=== PATIENT | female | born 1975 | race African-American/Black ===

== ENCOUNTER 2017-05-25 05:39 | Inpatient (IN) | payer OTHER ==
[2017-05-25] VITALS (19 sets, daily range): BP systolic 132–179; BP diastolic 72–90
[~2017-05-25] VITALS: Ht 157.5 cm; Wt 114.8 kg
[~2017-05-25 05:39] MED LIST: ceFAZolin sod 2 GM in D5W 110 ML IVPB ONE
[2017-05-25] MEDS ORDERED: IBUPROFEN600 M1 PO (06:47)
[2017-05-25] MEDS ORDERED: BP MED PO (06:47)
[2017-05-25] MEDS ORDERED: Thrombin 5000 units TOPIC ONE (07:08)
[2017-05-25] MEDS ORDERED: Bupivacaine 0.5% Inj 30 ml vial INJ ONE (07:09)
[2017-05-25] MEDS ORDERED: Vancomycin 1gm inj IVPB ONE (07:10)
[2017-05-25] MEDS ORDERED: Bacitracin 50000 Units Vial ONE (07:10)
[2017-05-25] MEDS ORDERED: EPINEPHrine 1mg/1ml Amp ONE (07:10)
--- NOTE | 2017-05-25 07:18 | Pre-Procedure Note/Attestation ---
Pre-Procedure Note/Attestation Complete Prior to Procedure Procedure Narrative: ACDF C4-5 Indications for Procedure Pre-Operative Diagnosis: CERVICAL RADICULOPATHY AND HNP Attestation I attest that I discussed the nature of the procedure; its benefits; risks and complications; and alternatives (and the risks and benefits of such alternatives ), prior to the procedure, with the patient (or the patient's legal manufacturers representative). I attest that, if there was a reasonable possibility of needing a blood transfusion, the patient (or the patient's legal manufacturers representative) was given the [facility] standardized written summary, pursuant to the Andrzej Neil Blood Safety Act ([place] Health and Safety Code # 1645, as amended). I attest that I re-evaluated the patient just prior to the surgery and that there has been no change in the patient's H&P, except as documented below: ESTIVEN WALDROP May 25, 2017 07:18
[2017-05-25] MEDS ORDERED: Norco 5mg/325mg tab ORAL PRN (07:30)
[2017-05-25] MEDS ORDERED: HYDROcodone/Acetamin 7.5/325 tab ORAL PRN ×2 (07:30)
[2017-05-25] MEDS ORDERED: Naloxone 0.4mg/ml Inj IVP PRN (07:30)
[2017-05-25] MEDS ORDERED: Propofol 1,000mg/ 100ml btl IV ONE (07:30)
[2017-05-25] MEDS ORDERED: LR 1000ml 1,000 ML IVLG SCH (08:51)
--- NOTE | 2017-05-25 08:54 | Anethesia Preoperative Eval ---
Anesthesia Pre-op PMH/ROS General Date of Evaluation: May 25, 2017 Time of Evaluation: 07:20 Anesthesiologist: RAFAELA ASA Score: ASA 2 Mallampati Score Class I : Soft palate, uvula, fauces, pillars visible Class II: Soft palate, uvula, fauces visible Class III: Soft palate, base of uvula visible Class IV: Only hard plate visible Mallampati Classification: Class II Surgeon: BENJIE Diagnosis: CERVICAL RADICULOPATHY Surgical Procedure: C4-5 ACDF Anesthesia History: none Family History: no anesthesia problems Allergies: Coded Allergies: No Known Allergies (Unverified , 05/25/17) Medications: see eMAR Anesthesia Pre-op Phys. Exam Physician Exam Last Vital Signs Date Time Temp Pulse Resp B/P (MAP) Pulse Ox O2 Delivery O2 Flow Rate FiO2 05/25/17 06:29 98.5 83 18 132/76 98 Room Air 98.5 Constitutional: NAD Neurologic: CN 2-12 intact Cardiovascular: RRR Respiratory: CTA Gastrointestinal: S/NT/ND Airway Exam Mallampati Score: Class II MO: full ROM: full Teeth: intact Anesthesia Pre-op A/P Labs Urine Test Test 05/25/17 04:50 Urine HCG, Qualitative Negative (NEGATIVE) Risk Assessment & Plan Plan: GA Status Change Before Surgery: No Pre-Antibiotics Drug: ANCEF Given Within 1 Hr of Incision: Yes Time Given: 08:00 Dileep Mittal M.D. May 25, 2017 08:54
--- NOTE | 2017-05-25 08:56 | Immediate Post-Op Evaluation ---
Immediate Post-Op Evalulation Immediate Post-Op Evalulation Procedure: C4-5 ACDF Date of Evaluation: May 25, 2017 Time of Evaluation: 10:30 IV Fluids: 1000 Blood Products: 0 Estimated Blood Loss: 30 Urinary Output: 0 Blood Pressure Systolic: 136 Blood Pressure Diastolic: 72 Pulse Rate: 79 Respiratory Rate: 19 O2 Sat by Pulse Oximetry: 99 Temperature (Fahrenheit): 98 Pain Score (1-10): 0 Nausea: No Vomiting: No Patient Status: awake, reacts, patent, extubated, none Drug: ANCEF Given Within 1 Hr of Incision: Yes Time Given: 08:00 Dileep Mittal M.D. May 25, 2017 08:56
[2017-05-25] MEDS ORDERED: Midazolam 2mg/2ml Inj IVP PRN (09:00)
[2017-05-25] MEDS ORDERED: Acetaminophen (Non formulary) 100 ML IV ONE (09:00)
[2017-05-25] MEDS ORDERED: Ketorolac 30mg Inj IV PRN (09:00)
[2017-05-25] MEDS ORDERED: Hydromorphone 0.5mg/0.5ml inj IVP PRN (09:00)
[2017-05-25] MEDS ORDERED: DiphenhydrAMINE 50mg/ml Inj IVP PRN (09:00)
[2017-05-25] MEDS ORDERED: fentaNYL 100 mcg/2 mL IV PRN (09:00)
--- NOTE | 2017-05-25 10:15 | Brief Operative Note ---
Immediate Post Operative Note Operative Note Pre-op Diagnosis: CERVICAL RADICULOPATHY AND HNP Procedure: acdf C4-5 Post-op Diagnosis: same as pre-op Findings: consistent w/pre-op dx studies Surgeon: BENJIE Director Of Market Research: VALDEMAR Anesthesiologist: RAFAELA Anesthesia: general Specimen: yes Complications: none Condition: stable Fluids: 500 CC CRYSTALLOID Estimated Blood Loss: minimal - 10CC Drains: none Implant(s) used?: Yes ESTIVEN WALDROP May 25, 2017 10:14
--- NOTE | 2017-05-25 12:14 | Diagnostic Imaging Report ---
Indication: Neck Pain Findings: 5 fluoroscopic views of the cervical spine were obtained. Images showing localization followed by anterior fusion at C4-5 with a plate and screws prosthetic disc. IMPRESSION: Intraoperative imaging
[2017-05-25] MEDS: ceFAZolin sod 1 GM in D5W 55 ML IV SCH (15:15)
[2017-05-25] MEDS: D5 1/2NS 1,000 ML IV SCH (15:15)
--- NOTE | 2017-05-25 15:58 | History and Physical ---
History of Present Illness General Date patient seen: May 25, 2017 Present Illness HPI 41 year old female with hx of HTN, cardiac disease, CERVICAL RADICULOPATHY AND HNP underwent acdf C4-5 today. Post operatively, pt was extubated and transferred to surgical floor for post-op care. Allergies: Coded Allergies: No Known Allergies (Unverified , 05/25/17) Medication History Scheduled Ibuprofen (Ibuprofen), 500 MG PO NEEDED, (Reported) [Bp Med], Unknown Dose PO DAILY, (Reported) Patient History Healthcare decision maker ZUNILDA DINERO-SISTER, ALEX VALENTIN - DAUGHTER Resuscitation status Full Code Advanced Directive on File Past Medical/Surgical History Past Medical/Surgical History: (1) HTN (hypertension) (2) Obesity Review of Systems All Other Systems: negative except mentioned in HPI Physical Exam General Appearance: WD/WN, overweight Lines, tubes and drains: peripheral HEENT: normocephalic, atraumatic Neck: non-tender, normal alignment Respiratory/Chest: chest wall non-tender, normal breath sounds Breasts: no masses Cardiovascular/Chest: normal peripheral pulses, normal rate Abdomen: normal bowel sounds, non tender Genitourinary/Rectal: normal genital exam, normal rectal exam 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 grossly normal Lymphatic: anterior cervical Last 24 Hour Vital Signs Date Time Temp Pulse Resp B/P (MAP) Pulse Ox O2 Delivery O2 Flow Rate FiO2 05/25/17 13:24 96 Nasal Cannula 2.0 28 05/25/17 13:24 Nasal Cannula 2.0 28 05/25/17 13:21 97.5 05/25/17 13:20 97.5 05/25/17 13:00 98.5 91 19 143/79 94 98.5 05/25/17 12:35 95 14 139/84 96 Nasal Cannula 3.0 05/25/17 12:25 94 14 141/79 99 Nasal Cannula 3.0 05/25/17 12:10 92 17 142/77 99 Nasal Cannula 3.0 05/25/17 11:57 94 20 156/81 98 Nasal Cannula 3.0 05/25/17 11:47 97.5 05/25/17 11:47 95 20 159/82 98 Nasal Cannula 3.0 05/25/17 11:45 95 20 159/82 98 Nasal Cannula 3.0 05/25/17 11:30 98 20 137/72 98 Nasal Cannula 3.0 05/25/17 11:23 99 20 152/85 98 Nasal Cannula 3.0 05/25/17 11:02 97.5 91 20 159/86 98 Nasal Cannula 3.0 97.5 05/25/17 10:45 91 20 167/83 98 Simple Mask 10.0 05/25/17 10:30 95 20 167/80 98 Simple Mask 10.0 05/25/17 10:20 94 20 179/82 98 Simple Mask 10.0 05/25/17 10:15 94 20 163/86 98 Simple Mask 10.0 05/25/17 10:10 97.1 100 20 157/86 100 Simple Mask 10.0 97.1 05/25/17 08:55 208.4 79 19 99 05/25/17 06:29 98.5 83 18 132/76 98 Room Air 98.5 Intake and Output 05/24/17 05/25/17 19:00 07:00 # Voids 1 Laboratory Tests Test 05/25/17 04:50 Urine HCG, Qualitative Negative (NEGATIVE) Height (Feet): 5 Height (Inches): 2.00 Weight (Pounds): 253 Medications Current Medications Medications (Trade) Dose Ordered Sig/Sid Route PRN Reason Start Time Stop Time Status Last Admin Dose Admin Acetaminophen/ Hydrocodone Bitart ([place] 5/325) 1 tab Q3H PRN ORAL pain score 1-3 05/25/17 07:30 06/01/17 07:29 Acetaminophen/ Hydrocodone Bitart ([place] 7.5/325) 1 tab Q3H PRN ORAL pain score 4-6 05/25/17 07:30 06/01/17 07:29 Acetaminophen/ Hydrocodone Bitart ([place] 7.5/325) 2 tab Q3H PRN ORAL pain scale 7-10 05/25/17 07:30 06/01/17 07:29 Cefazolin Sodium 1 gm/Dextrose 55 ml @ 110 mls/hr Q8H IV 05/25/17 16:00 05/26/17 08:29 05/25/17 15:15 Dextrose/Sodium Chloride 1,000 ml @ 100 mls/hr Q10H IV 05/25/17 14:00 06/24/17 13:59 05/25/17 15:15 Diphenhydramine HCl (Benadryl) 25 mg Q15M PRN IVP Itching 05/25/17 09:00 05/25/17 17:00 Docusate Sodium (Colace) 100 mg TWICE A DAY ORAL 05/25/17 18:00 06/24/17 17:59 Fentanyl Citrate (Sublimaze 100 mcg/2 mL) 25 mcg Q10M PRN IV Moderate Pain (Pain Scale 4-6) 05/25/17 09:00 05/25/17 17:00 Hydralazine HCl (Apresoline) 5 mg Q30M PRN IV SBP>160 /DBP>90 05/25/17 09:00 05/25/17 17:00 Hydromorphone HCl (Dilaudid) 0.5 mg Q15M PRN IVP Severe Pain (Pain Scale 7-10) 05/25/17 09:00 05/25/17 17:00 05/25/17 11:23 Hydromorphone HCl (Dilaudid) 1 mg Q2H PRN IVP Breakthrough Pain 05/25/17 07:30 06/01/17 07:29 Hydromorphone HCl (Dilaudid) 1 mg Q4H PRN SUBQ Mild Pain (Pain Scale 1-3) 05/25/17 07:30 06/01/17 07:29 Hydromorphone HCl (Dilaudid) 2 mg Q3H PRN SUBQ Severe Pain (Pain Scale 7-10) 05/25/17 07:30 06/01/17 07:29 Hydromorphone HCl (Dilaudid) 2 mg Q4H PRN SUBQ Moderate Pain (Pain Scale 4-6) 05/25/17 07:30 06/01/17 07:29 Ketorolac Tromethamine (Toradol 30mg) 30 mg Q1H PRN IV Severe Breakthru Pain (>7) 05/25/17 09:00 05/25/17 17:00 05/25/17 11:47 Midazolam HCl (Versed 2mg/2ml vial) 1 mg Q15M PRN IVP For Anxiety 05/25/17 09:00 05/25/17 17:00 Naloxone HCl (Narcan) 0.1 mg PRN PRN IVP RR<12/min, pt unarousable 05/25/17 07:30 06/24/17 07:29 Ondansetron HCl (Zofran) 4 mg Q1H PRN IVP Nausea & Vomiting 05/25/17 09:00 05/25/17 17:00 Assessment/Plan Problem List: (1) Cervical radicular pain ICD Codes: M54.12 - Radiculopathy, cervical region SNOMED: 331956628 (2) Obesity ICD Codes: E66.9 - Obesity, unspecified SNOMED: 181140866, 535965908 (3) HTN (hypertension) ICD Codes: I10 - Essential (primary) hypertension SNOMED: 66248752 Assessment/Plan post op care pain management symptomatic treatment dvt prophylaxis dc planning as per surgeon Batool Garcia MD May 25, 2017 15:58
[2017-05-25] MEDS: Docusate 100mg cap ORAL SCH (17:18)
[2017-05-26] VITALS: BP 130/79
[2017-05-26] MEDS: ceFAZolin sod 1 GM in D5W 55 ML IV SCH ×2 (00:25→08:45)
[2017-05-26] MEDS: D5 1/2NS 1,000 ML IV SCH ×3 (00:25→14:38)
[2017-05-26] MEDS: DiphenhydrAMINE 50mg/ml Inj IVP PRN ×2 (03:15→22:23)
[2017-05-26 04:00] VITALS: BP 134/71
[2017-05-26] MEDS ORDERED: Morphine Sulfate 10mg/ml Inj ONE (07:30)
[2017-05-26] MEDS ORDERED: fentaNYL 100 mcg/2 mL IV ONE (07:30)
[2017-05-26] MEDS ORDERED: Midazolam 2mg/2ml Inj ONE (07:30)
[2017-05-26] MEDS ORDERED: Zemuron 50mg/5ml Inj IV ONE (07:30)
[2017-05-26] MEDS ORDERED: LR 1000ml ONE (07:30)
[2017-05-26] MEDS ORDERED: NS Irrig 1000ml ONE (07:30)
[2017-05-26] MEDS ORDERED: Neostigmine 1mg/ml 10ml Inj ONE (07:30)
[2017-05-26] MEDS ORDERED: Sterile Water Irrig 1000ml IRRIG ONE (07:30)
[2017-05-26] MEDS ORDERED: Succinylcholine 20mg/ml 10ml vial ONE (07:30)
[2017-05-26] MEDS ORDERED: Glycopyrrolate 0.2mg/ml 1ml Vial ONE (07:30)
[2017-05-26 08:43] VITALS: BP 124/75
[2017-05-26] MEDS: Docusate 100mg cap ORAL SCH ×2 (08:45→17:24)
--- NOTE | 2017-05-26 08:49 | General Progress Note ---
Progress Note Progress Note Minimal pain in the neck arm pain resolved some nausea tolerating fluids avss a and o time 3 dressing cdi 5/5 motor in the ue and the le calves soft and nt a: doing well post op P: oob and pt c collar spine precautions dc in the am tomorrow fu 7 to 10 days ESTIVEN WALDROP May 26, 2017 08:49
[2017-05-26] MEDS: Chloraseptic Spray 20mL Bottle ORAL PRN ×3 (11:02→18:35)
--- NOTE | 2017-05-26 11:39 | 48 Hour Post Anesthesia Eval ---
Post Anesthesia Evaluation Procedure: C4-5 ACDF Date of Evaluation: May 26, 2017 Blood Pressure Systolic: 138 0: 75 Pulse Rate: 68 Respiratory Rate: 20 Temperature (Fahrenheit): 97.5 O2 Sat by Pulse Oximetry: 99 Airway: patent Nausea: No Vomiting: No Pain Intensity: 3 Hydration Status: adequate Cardiopulmonary Status: stable Mental Status/LOC: patient returned to baseline Follow-up Care/Observations: n/a Post-Anesthesia Complications: none Follow-up care needed: N/A DAMION QUIROZ M.D. May 26, 2017 11:39
[2017-05-26 11:52] VITALS: BP 154/95
--- NOTE | 2017-05-26 15:58 | Pulmonology Progress Note ---
Assessment/Plan Problems: (1) Cervical radicular pain (2) Obesity (3) HTN (hypertension) Assessment/Plan symptomatic treatment pain control pt/ot monitro BP Subjective ROS Limited/Unobtainable: No Constitutional: Reports: no symptoms HEENT: Repors: no symptoms Respiratory: Reports: no symptoms Allergies: Coded Allergies: No Known Allergies (Unverified , 05/25/17) Objective Last 24 Hour Vital Signs Date Time Temp Pulse Resp B/P (MAP) Pulse Ox O2 Delivery O2 Flow Rate FiO2 05/26/17 11:52 98.3 86 21 154/95 96 Room Air 98.3 05/26/17 11:39 207.5 68 20 99 05/26/17 08:43 98.4 86 20 124/75 96 Room Air 98.4 05/26/17 04:00 98.4 88 18 134/71 100 Room Air 98.4 05/26/17 00:00 98.5 100 18 130/79 98 Room Air 98.5 05/25/17 20:00 98.0 82 20 146/90 100 Nasal Cannula 2.0 98.0 05/25/17 16:00 98.0 73 20 145/83 96 Room Air 98.0 Intake and Output 05/25/17 05/26/17 19:00 07:00 Intake Total 1595 ml 1055 ml Output Total 30 ml Balance 1565 ml 1055 ml Intake Oral 240 ml IV Total 1355 ml 1055 ml Output Estimated Blood Loss 30 ml # Voids 2 General Appearance: WD/WN HEENT: normocephalic, atraumatic Respiratory/Chest: chest wall non-tender, lungs clear Breasts: no masses Cardiovascular: normal peripheral pulses, normal rate Abdomen: normal bowel sounds, soft, non tender Genitourinary: normal external genitalia Extremities: no cyanosis Skin: no rash Neurologic/Psychiatric: speech/language therapist II-XII grossly normal Lymphatic: no groin adenopathy Current Medications Medications (Trade) Dose Ordered Sig/Sid Route PRN Reason Start Time Stop Time Status Last Admin Dose Admin Acetaminophen/ Hydrocodone Bitart ([place] 5/325) 1 tab Q3H PRN ORAL pain score 1-3 05/25/17 07:30 06/01/17 07:29 Acetaminophen/ Hydrocodone Bitart ([place] 7.5/325) 1 tab Q3H PRN ORAL pain score 4-6 05/25/17 07:30 06/01/17 07:29 Acetaminophen/ Hydrocodone Bitart ([place] 7.5/325) 2 tab Q3H PRN ORAL pain scale 7-10 05/25/17 07:30 06/01/17 07:29 Dextrose/Sodium Chloride 1,000 ml @ 100 mls/hr Q10H IV 05/25/17 14:00 06/24/17 13:59 05/26/17 14:38 Diphenhydramine HCl (Benadryl) 25 mg Q6H PRN IVP Itching 05/26/17 03:00 06/25/17 02:59 05/26/17 03:15 Docusate Sodium (Colace) 100 mg TWICE A DAY ORAL 05/25/17 18:00 06/24/17 17:59 05/26/17 08:45 Hydromorphone HCl (Dilaudid) 1 mg Q2H PRN IVP Breakthrough Pain 05/25/17 07:30 06/01/17 07:29 Hydromorphone HCl (Dilaudid) 1 mg Q4H PRN SUBQ Mild Pain (Pain Scale 1-3) 05/25/17 07:30 06/01/17 07:29 Hydromorphone HCl (Dilaudid) 2 mg Q3H PRN SUBQ Severe Pain (Pain Scale 7-10) 05/25/17 07:30 06/01/17 07:29 05/25/17 22:00 Hydromorphone HCl (Dilaudid) 2 mg Q4H PRN SUBQ Moderate Pain (Pain Scale 4-6) 05/25/17 07:30 06/01/17 07:29 Naloxone HCl (Narcan) 0.1 mg PRN PRN IVP RR<12/min, pt unarousable 05/25/17 07:30 06/24/17 07:29 Ondansetron HCl (Zofran) 4 mg Q6H PRN IVP Nausea & Vomiting 05/25/17 17:00 06/24/17 16:59 05/25/17 16:57 Phenol/Menthol (Chloraseptic) 1 spray Q3H PRN ORAL To Patient Comfort,sore throat 05/26/17 10:00 06/25/17 09:59 05/26/17 14:41 Batool Garcia MD May 26, 2017 15:58
[2017-05-26 16:00] VITALS: BP 128/76
--- NOTE | 2017-05-26 16:15 | Operative Note - Dictated ---
DATE OF OPERATION: 05/25/2017 PREOPERATIVE DIAGNOSES: C4-C5 disc protrusion, annular tear with neural foraminal narrowing, and cord indentation with upper extremity radiculopathy. POSTOPERATIVE DIAGNOSES: C4-C5 disc protrusion, annular tear with neural foraminal narrowing, and cord indentation with upper extremity radiculopathy. PROCEDURE PERFORMED: 1. Interbody arthrodesis at C4-C5. 2. Anterior cervical instrumentation at C4-C5. 3. Anterior cervical diskectomy and decompression of the spinal canal and foramina at C4-C5. 4. Implantation of PEEK, local autograft, and allograft at C4-C5. 5. Intraoperative use of fluoroscopy. 6. Intraoperative use of microscope. 7. SSEP and EMG neurophysiological monitoring. SURGEON: Ad Kerr M.D. MANAGER PRODUCT DESIGN: Dilshad Ramos MD ANESTHESIA: General endotracheal anesthesia. ANESTHESIOLOGIST: Dileep Mittal M.D. ESTIMATED BLOOD LOSS: 10 mL. FLUIDS: 500 mL of crystalloid. INTRAVENOUS ANTIBIOTIC: 2 g of Ancef. BACKGROUND INDICATIONS: This is a pleasant female, who failed nonoperative treatments and option for above treatment was given. Risks, alternatives, and benefits were discussed with the patient at length and the patient wished to proceed. DESCRIPTION OF OPERATION: The patient was brought into the operating room supine on a stretcher. Appropriate IV lines were placed by the anesthesiologist. 2 g of Ancef was administered. A surgical time-out was taken. The patient was induced and intubated without complication. The patient was positioned onto the operating room table. The neck was placed in neutral alignment. The arms were tucked by the side. All bony prominences were well padded as well as the four extremities. SSEP neurophysiological monitoring and EMG leads were placed and remained stable throughout the case. Preoperative fluoroscopy revealed the planned incision to be over the C4-C5 interspace. Fluoroscopy revealed the neck to be in adequate alignment. The neck was prepped and draped in usual sterile fashion with alcohol, ChloraPrep, and [place] draping. At this point, an incision was carried out with a scalpel on the anterior right side of the neck in the crease of the neck. Hemostasis was achieved with Gelfoam, thrombin and bipolar cautery. The platysma was incised in line with the skin incision. Blunt dissection was carried out in the interval between the strap muscles and sternocleidomastoid. Superficial cervical fascia was dissected caudally as well as cephalad. Carotid pulse was palpated and was found to be well lateral to the field of dissection. The superficial cervical fascia was dissected caudally as well cephalad. Carotid pulse was palpated and was found to be well lateral to the field of dissection. Deep cervical fascia was encountered. Once the deep cervical fascia was found, blunt dissection was carried out with [place] as well as with finger dissection to find the prevertebral space. The longus colli was found on both sides of the spine and was subperiosteally dissected off of the spine. The intraoperatively sterilely draped microscope was used throughout the case from skin incision to skin closure. Now, retractors were set into place. Spinal needle was used to identify the C4-C5 disc space via lateral fluoroscopy. At this point, attention was diverted to the diskectomy. A #15 fresh scalpel was used to incise the anterior annulus superficially. Pituitary rongeurs as well as straight curettes were used to remove the endplate cartilage from C4-C5, a high-speed drill was used to drill the posterior aspect of the vertebral bodies at C4 and C5 to the level of the PLL. Now, with #1 and #2 Microsect curette, the PLL was gently removed. There was a subligamentous disc herniation that was central and right paracentral compressing the spinal cord as well as compressing the exiting right L5 nerve root in the lateral recess. An anterior foraminotomy was done for bilateral C5 nerve roots and the wound was copiously irrigated with triple antibiotic solution. Valsalva was done at 40 mmHg. There was no CSF leak. At this point, trials from the Spinal Element System was used, and a 14 x 11 x 7 mm 7 degree lordotic PEEK interbody device was chosen, was packed with Ele allograft as well as local allograft from the C4 and C5 vertebral bodies, and the PEEK interbody spacer was gently tamped into place at C4-C5 with excellent recreation of disc height and lordosis. Now, a 12 mm [place] plate was chosen, bent in a lordotic fashion, and fixed to the anterior surface of the C4 and C5 vertebral bodies with two 12 mm self-drilling screws and two 14 mm self-drilling screws. Each screw had excellent purchase and sat below the locking mechanism of the plate appropriately. Final AP and lateral fluoroscopy revealed all instrumentation to be in excellent position. The wound was copiously irrigated with triple antibiotic solution. Hemostasis was achieved. There was no bleeding, and therefore, a drain was not placed. The platysma was closed with 3-0 Vicryl sutures. The skin was closed with 3-0 Monocryl sutures as well as Dermabond. Sterile dressing taped. C-collar was placed. The patient was extubated, in stable condition, was taken to recovery room in stable condition, and found to be neurovascularly intact. The patient was admitted to the hospital for monitoring. Ad Kerr M.D. DR: WINDY JOB#: [id number] CC:
[2017-05-26 20:00] VITALS: BP 176/100
[2017-05-27] VITALS: BP 139/89
[2017-05-27 04:00] VITALS: BP 133/83
[2017-05-27 08:00] VITALS: BP 161/97
[2017-05-27] MEDS: Docusate 100mg cap ORAL SCH (08:04)
[2017-05-27] MEDS ORDERED: NORCO 5-325 TA1 EAC1 ORAL (08:12)
[2017-05-27 12:00] VITALS: BP 129/82
[2017-05-27] MEDS ORDERED: NORVASC2.5 MG ORAL (13:11)
[2017-05-27] MEDS ORDERED: Tubing IV Secondary IV ONE (13:44)
[2017-05-27] MEDS ORDERED: D5 1/2NS 1000ml IV ONE (13:44)
--- NOTE | 2017-05-28 13:33 | Discharge Summary ---
Discharge Summary Hospital Course Date of Admission May 25, 2017 at 05:39 Date of Discharge May 27, 2017 at 13:45 Admitting Diagnosis cervical radriculopathy, herniated nucleus pukposa Reason for Hospitalization: elective surgery HPI Rosana Deluca is a 41 year old female who was admitted on May 25, 2017 at 05: 39 for cervical radiculopathy, herniated nucleus pulposa patient was admitted for elective surgery Consultations dr Garcia- Procedures s/p 05/25/[address] Kerr PROCEDURE PERFORMED: 1. Interbody arthrodesis at C4-C5. 2. Anterior cervical instrumentation at C4-C5. 3. Anterior cervical diskectomy and decompression of the spinal canal and foramina at C4-C5. 4. Implantation of PEEK, local autograft, and allograft at C4-C5. 5. Intraoperative use of fluoroscopy. 6. Intraoperative use of microscope. 7. SSEP and EMG neurophysiological monitoring. Hospital Course s/p surgery course of recovery uneventful neurovascular intact dressing C/D/I cervical collar on pain management ambulated initially under PT/OT supervision, fall precautions maintained able to ambulate independently, initially IVF diet from liquid advanced to soft as tolerated a/emetic prn, throat lozenges prn for throat discomfort tolerated diet voided freely pain controlled BP was managed with CCB, stable dc instructions provided outpt f/up with surgeon in 7-10 days scripts for analgesics provided FINAL DIAGNOSIS C4-C5 disc protrusion, annular tear with neural foraminal narrowing, cord indentation with upper extremity radiculopathy. s/p C4-5 ACDF HTN obesity Discharge Medications Continued Medications: Amlodipine Besylate (Norvasc) 2.5 Mg Tablet 2.5 MG ORAL DAILY, #30 TAB (This prescription has been renewed) Hydrocodone Bit/Acetaminophen 5-325* ([place] 5-325 Tablet*) 1 Each Tablet 1 TAB ORAL Q4H PRN for For Pain, #30 TAB (This prescription has been renewed) Discharge Condition Upon Discharge: stable Discharge Disposition Patient was discharged to Home () Discharge Instructions Discharge Instructions Special Instructions I have been assigned to complete a D/C Summary on this account. I was not involved in the patient management Radhika Manzano NP ([place]) May 28, 2017 13:33
== END 2017-05-27 13:45 | disposition home or self-care (01) | DRG 472 ==
LOC: SDSOVERFLO 05:39 → 3E 12:52
PROC: 0RG10A0 Fusion of Cervical Vertebral Joint with Interbody Fusion Device, Anterior Approach, Anterior Column, Open Approach (ICD-10-PCS; principal; 2017-05-25 07:30)
PROC: 0RB30ZZ Excision of Cervical Vertebral Disc, Open Approach (ICD-10-PCS; principal; 2017-05-25 07:30)
DX: M50.121 Cervical disc disorder at C4-C5 level with radiculopathy (principal); Z68.42 Body mass index [BMI] 45.0-49.9, adult; E66.9 Obesity, unspecified; I10 Essential (primary) hypertension; I51.9 Heart disease, unspecified
CPT/HCPCS: 36415; 72040; 76001; 81025; 86850; 86900; 86901; 87081; 94003; 94150; 94760; J2250; J2405; J2710